=== PATIENT | female | born 1960 | race Caucasian/White ===

== ENCOUNTER 2019-09-29 23:51 | Emergency (ER) | payer BC ==
[2019-09-30] MEDS ORDERED: LIDOCAINE VISCOUS 2% SOLN 15 ML UDC ONE (00:35)
[2019-09-30] MEDS ORDERED: ONDANSETRON 4 MG/2 ML VIAL ONE (00:35)
[2019-09-30] MEDS ORDERED: NA CHLORIDE 0.9% 1,000 ML ONE (00:35)
[2019-09-30] MEDS ORDERED: FENTANYL CITR 100 MCG/2 ML ONE ×2 (00:35→01:42)
[2019-09-30] MEDS ORDERED: FLEET ENEMA ADULT PR ONE (00:55)
[2019-09-30 01:01] LABS: Absolute Lymphocytes (CBC) 1.5 K/uL (0.7-4.9); Basophils % 0.7 % (0-1.3); Hematocrit 38.4 % (36.0-45.0); Lymphocytes % 10.6 % (15.3-44.8); MPV 8.4 fL (7.6-11.3); RBC Red Blood Cell Count 4.34 M/uL (3.86-4.86)
[2019-09-30 01:25] LABS: Bilirubin Direct 0.2 mg/dL (0-0.2); Bilirubin Total 0.7 mg/dL (0.2-1.0); Potassium 3.6 mmol/L (3.5-5.1); Protein, Total 7.9 g/dL (6.4-8.2)
[2019-09-30] MEDS ORDERED: MAGNESIUM CITRATE 300 ML BOT ONE (01:43)
--- NOTE | 2019-09-30 01:48 | ER ---
Nurse's Notes [facility] Name: Jojo Alfaro Age: 59 yrs Sex: Female : 1960 Arrival Date: 09/29/2019 Time: 23:54 Bed 28 Private MD: Diagnosis: Fecal impaction Presentation: 09/30 00:07 Presenting complaint: Patient states: she has not been able to have a bowel movement aa1 today and was able to pass a small amount of stool but it became stuck and she is now having significant rectal pain and is unable to sit down. Transition of care: patient was not received from another setting of care. Onset of symptoms was September 29, 2019. Risk Assessment: Do you want to hurt yourself or someone else? Patient reports no desire to harm self or others. Initial Sepsis Screen: Does the patient meet any 2 criteria? RR > 20 per min. HR > 90 bpm. Does the patient have a suspected source of infection? No. Patient's initial sepsis screen is negative. Care prior to arrival: None. 00:07 Method Of Arrival: Ambulatory aa1 00:07 Acuity: ISAC 3 aa1 Triage Assessment: 00:06 General: Appears uncomfortable, well groomed, Behavior is anxious, restless. Pain: ch Complains of pain in anus Pain currently is 8 out of 10 on a pain scale. Pain began gradually. EENT: No deficits noted. No signs and/or symptoms were reported regarding the EENT system. Neuro: No deficits noted. Cardiovascular: No deficits noted. Respiratory: Airway is patent Respiratory effort is even, unlabored, Breath sounds are clear bilaterally. GI: Reports constipation, rectal pain, states she can feel stool in there but it is very hard and wont come out. Derm: Skin is intact, is healthy with good turgor, Skin is clammy, Skin is normal, pale, Skin temperature is warm. Musculoskeletal: No signs and/or symptoms reported regarding the musculoskeletal system. Historical: - Allergies: 00:10 Levaquin; aa1 - Home Meds: 00:10 phentermine 37.5 mg oral cap 1 cap once daily [Active]; amlodipine 2.5 mg tab 1 tab aa1 once daily [Active]; metoprolol succinate 50 mg oral Tb24 1 tab once daily [Active]; losartan-hydrochlorothiazide 100-25 mg oral tab 1 tab once daily [Active]; - PMHx: 00:10 Hypertension; aa1 - PSHx: 00:10 Hysterectomy; Tubal ligation; Appendectomy; aa1 - Immunization history:: Adult Immunizations up to date, Flu vaccine is not up to date. . - Coronavirus screen:: The patient has NOT traveled to [place] in the past 14 days. Proceed with normal triage process as indicated. - Social history:: Smoking status: Patient denies any tobacco usage or history of. Smoking status: Patient denies any tobacco usage or history of. - Ebola Screening: : No symptoms or risks identified at this time. Screenin:09 Abuse screen: Denies threats or abuse. Denies injuries from another. Nutritional ch screening: No deficits noted. Tuberculosis screening: No symptoms or risk factors identified. Fall Risk None identified. Assessment: 00:10 Reassessment: Patient appears in no apparent distress at this time. No changes from previously documented assessment. 01:18 Reassessment: Patient appears in no apparent distress at this time. fleet enema ch administered. pt yells for me to stop 1/[address] thru the bottle. I stop. pt then assisted to standing. pt states she hurts too much to sit on the commode. I tell Elroy sheets. pt still cannot sit on bsc, states she doesn't want to lay or sit. soap suds enema ordered. 01:35 Reassessment: Patient appears in no apparent distress at this time. pt is not ch tolerating soap suds enema. I attempted to give soap suds enema to pt. pt states she needs more pain medication, that she cannot handle this. Elroy sheets comes in to re assess pt. 01:49 Reassessment: pt left in room. pt sits on commode and poops. pt states she feels ch instant relief. pt to be discharged. 01:59 GI: Bowel sounds present X 4 quads. Abd is soft and non tender X 4 quads. Vital Signs: 00:06 BP 94 / 52; Pulse 110; Resp 20; Temp 98.5(O); Pulse Ox 99% on R/A; Pain 8/10; ch 00:10 Weight 86.18 kg; Height 5 ft. 7 in. (170.18 cm); aa1 01:17 BP 120 / 78; Pulse 97; Resp 14; Temp 98.8; Pulse Ox 99% on R/A; Pain 8/10; ch 01:49 BP 110 / 62; Pulse 74; Resp 16; Temp 98.4; Pulse Ox 99% on R/A; Pain 1/10; ch 00:10 Body Mass Index 29.76 (86.18 kg, 170.18 cm) aa1 ED Course: 09/29 23:54 Patient arrived in ED. ds1 23:58 Elroy Sheets PA is PHCP. cp 23:58 Jose Owens MD is Attending Physician. cp 09/30 00:06 Amelia Tijerina, SARA is Primary Nurse. ch 00:06 Arm band placed on left wrist. Patient placed in an exam room, on a stretcher, I ch attempt to put pt on pulse ox monitoring and to have pt sit or lay in bed. pt is very restless and cannot sit still. pt declines pulse ox. she states her anus just hurts too much to hold still. awaiting provider for rectal exam. 00:09 Triage completed. aa1 00:09 Patient has correct armband on for positive identification. Bed in low position. Call ch light in reach. Side rails up X 1. 00:45 Inserted saline lock: 18 gauge in left antecubital area, using aseptic technique. Blood ch collected. 00:45 Initial lab(s) drawn, by me, sent to lab. ch 01:17 Pulse ox on. NIBP on. Door closed. Noise minimized. Warm blanket given. ch 01:49 No apparent distress. Resting quietly. ch 01:49 No provider procedures requiring assistance completed. IV discontinued, intact, ch bleeding controlled, No redness/swelling at site. Pressure dressing applied. Administered Medications: 00:45 Drug: fentaNYL (PF) 25 mcg Route: IVP; Site: left antecubital; ch 01:49 Follow up: Response: No adverse reaction ch 00:45 Drug: NS 0.9% 1000 ml Route: IV; Rate: 1 bolus; Site: left antecubital; ch 01:49 Follow up: IV Status: Completed infusion; IV Intake: 1000ml ch 01:00 Drug: Fleet Enema 133 ml Route: ND; ch 01:10 Follow up: Response: Adverse reaction, Physician notified; only 1/2 bottle ch administered. pt tolerated poorly, requests I stop. enema stopped at 1/2 bottle. 01:30 Drug: enema 1 application Route: ND; ch 01:35 Follow up: Response: Adverse reaction, Physician notified; Adverse reaction, Physician ch notified, pt states she cannot handle the pressure, we need to stop. I stop soap suds enema after 5 min, less than 100mL in. pt left in room alone with bsc, call light. 01:48 Not Given (Patient Refused): fentaNYL (PF) 25 mcg IVP once; RASS on ADMIN: Combtv4, ch Very Agttd3, Agttd2, Rstlss1, AlertClm0, Drwsy-1, Lt Sdtn-2, Mod Sdtn-3, Dp Sdtn-4, UnArsble-5 01:49 Not Given (Patient Refused): Magnesium Citrate Liquid 300 ml PO once ch Intake: 01:49 IV: 1000ml; Total: 1000ml. ch Outcome: 01:48 Discharge ordered by MD. cp 01:49 Discharged to home ambulatory, with family. 01:49 Condition: stable 01:49 Discharge instructions given to patient, Instructed on discharge instructions, follow up and referral plans. Demonstrated understanding of instructions, follow-up care. 02:00 Patient left the ED. Signatures: Amelia Tijerina RN Franca Bray ch, RN RN aa1 Jordana Del Toro ds1 Elroy Sheets PA PA cp
--- NOTE | 2019-09-30 01:49 | EDPHYS ---
Physician Documentation [facility] Name: Jojo Alfaro Age: 59 yrs Sex: Female : 1960 Arrival Date: 09/29/2019 Time: 23:54 Bed 28 Private MD: ED Physician Jose Owens HPI: 09/30 00:30 This 59 yrs old Female presents to ER via Ambulatory with complaints of cp Constipation. 00:30 The patient presents to the emergency department with pain in the rectal area, that is cp severe. Onset: The symptoms/episode began/occurred today. Associate signs and symptoms: Pertinent positives: constipation, Pertinent negatives: abdominal pain, diarrhea, fever, lower GI bleeding. Historical: - Allergies: 00:10 Levaquin; aa1 - Home Meds: 00:10 phentermine 37.5 mg oral cap 1 cap once daily [Active]; amlodipine 2.5 mg tab 1 tab aa1 once daily [Active]; metoprolol succinate 50 mg oral Tb24 1 tab once daily [Active]; losartan-hydrochlorothiazide 100-25 mg oral tab 1 tab once daily [Active]; - PMHx: 00:10 Hypertension; aa1 - PSHx: 00:10 Hysterectomy; Tubal ligation; Appendectomy; aa1 - Immunization history:: Adult Immunizations up to date, Flu vaccine is not up to date. . - Coronavirus screen:: The patient has NOT traveled to [place] in the past 14 days. Proceed with normal triage process as indicated. - Social history:: Smoking status: Patient denies any tobacco usage or history of. Smoking status: Patient denies any tobacco usage or history of. - Ebola Screening: : No symptoms or risks identified at this time. ROS: 00:35 Constitutional: Negative for body aches, chills, fever, poor PO intake. cp 00:35 Eyes: Negative for injury, pain, redness, and discharge. cp 00:35 Cardiovascular: Negative for chest pain. cp 00:35 Respiratory: Negative for cough, shortness of breath, wheezing. cp 00:35 Abdomen/GI: Positive for constipation, rectal pain, Negative for abdominal pain, vomiting, diarrhea, black/tarry stool, rectal bleeding. 00:35 Neuro: Negative for altered mental status, weakness. 00:35 All other systems are negative. Exam: 00:45 Constitutional: The patient appears in no acute distress, alert, awake, non-toxic, well cp developed, well nourished, uncomfortable. 00:45 Head/Face: Normocephalic, atraumatic. cp 00:45 Eyes: Periorbital structures: appear normal, Conjunctiva: normal, no exudate, no injection, Sclera: no appreciated abnormality, Lids and lashes: appear normal, bilaterally. 00:45 ENT: External ear(s): are unremarkable, Nose: is normal, Mouth: Lips: moist, Oral mucosa: moist, Posterior pharynx: is normal, airway is patent. 00:45 Chest/axilla: Inspection: normal. 00:45 Cardiovascular: Rate: tachycardic, Rhythm: regular. 00:45 Respiratory: the patient does not display signs of respiratory distress, Respirations: normal, no use of accessory muscles, labored breathing, is not present. 00:45 Abdomen/GI: Inspection: abdomen appears normal, Bowel sounds: active, all quadrants, Palpation: abdomen is soft and non-tender, in all quadrants, rebound tenderness, is not appreciated, voluntary guarding, is not appreciated, involuntary guarding, is not appreciated, Rectal exam: fecal impaction, that is severe. Vital Signs: 00:06 BP 94 / 52; Pulse 110; Resp 20; Temp 98.5(O); Pulse Ox 99% on R/A; Pain 8/10; ch 00:10 Weight 86.18 kg; Height 5 ft. 7 in. (170.18 cm); aa1 01:17 BP 120 / 78; Pulse 97; Resp 14; Temp 98.8; Pulse Ox 99% on R/A; Pain 8/10; ch 01:49 BP 110 / 62; Pulse 74; Resp 16; Temp 98.4; Pulse Ox 99% on R/A; Pain 1/10; ch 00:10 Body Mass Index 29.76 (86.18 kg, 170.18 cm) aa1 MDM: 00:09 Patient medically screened. cp 01:00 Differential diagnosis: hemorrhoids, abscess, fecal impaction, constipation, bowel cp obstruction. 01:46 Data reviewed: vital signs, nurses notes, lab test result(s). Response to treatment: cp the patient's symptoms have markedly improved after treatment, Patient observed to have bowel movement while in ED. 09/30 00:30 Order name: Basic Metabolic Panel cp 09/30 00:30 Order name: CBC with Diff cp 09/30 00:30 Order name: Creatinine for Radiology cp 09/30 00:30 Order name: Hepatic Function cp 09/30 00:30 Order name: Lipase cp 09/30 01:04 Order name: CBC with Automated Diff; Complete Time: 01:34 EDMS 09/30 01:34 Interpretation: Normal except: WBC 13.8; EMMANUEL% 83.0; LYM% 10.6; NEUT A 11.5. cp 09/30 01:24 Order name: Creatinine (Radiology Only); Complete Time: 01:34 EDMS 09/30 01:26 Order name: Basic Metabolic Panel; Complete Time: :34 EDMS 09/30 01:42 Interpretation: Normal except: GLUC 179; GFR 43. cp 09/30 01:26 Order name: Liver (Hepatic) Function; Complete Time: 01:34 EDMS 09/30 01:42 Interpretation: Normal except: GLOB 3.9; A/G 1.0. cp 09/30 01:26 Order name: Lipase; Complete Time: :34 EDMS 09/30 00:30 Order name: IV Saline Lock; Complete Time: 01:55 cp 09/30 00:30 Order name: Labs collected and sent; Complete Time: 01:55 cp Administered Medications: 00:45 Drug: fentaNYL (PF) 25 mcg Route: IVP; Site: left antecubital; ch 01:49 Follow up: Response: No adverse reaction ch 00:45 Drug: NS 0.9% 1000 ml Route: IV; Rate: 1 bolus; Site: left antecubital; ch 01:49 Follow up: IV Status: Completed infusion; IV Intake: 1000ml ch 01:00 Drug: Fleet Enema 133 ml Route: CA; ch 01:10 Follow up: Response: Adverse reaction, Physician notified; only 1/2 bottle ch administered. pt tolerated poorly, requests I stop. enema stopped at 1/2 bottle. 01:30 Drug: enema 1 application Route: CA; ch 01:35 Follow up: Response: Adverse reaction, Physician notified; Adverse reaction, Physician ch notified, pt states she cannot handle the pressure, we need to stop. I stop soap suds enema after 5 min, less than 100mL in. pt left in room alone with bsc, call light. 01:48 Not Given (Patient Refused): fentaNYL (PF) 25 mcg IVP once; RASS on ADMIN: Combtv4, ch Very Agttd3, Agttd2, Rstlss1, AlertClm0, Drwsy-1, Lt Sdtn-2, Mod Sdtn-3, Dp Sdtn-4, UnArsble-5 01:49 Not Given (Patient Refused): Magnesium Citrate Liquid 300 ml PO once ch Disposition: 03:13 Co-signature as Attending Physician, Jose Owens MD. rn Disposition: 09/30/19 01:48 Discharged to Home. Impression: Fecal impaction. - Condition is Stable. - Discharge Instructions: Constipation, Adult, Fecal Impaction. - Prescriptions for Miralax 17 gram/dose Oral - take 1 packet by ORAL route once daily for 10 days dilute powder in 8 ounces of water or juice; 10 packet. - Medication Reconciliation Form, Thank You Letter, Antibiotic Education, Prescription Opioid Use form. - Follow up: Emergency Department; When: As needed; Reason: Worsening of condition. - Problem is new. - Symptoms have improved. Signatures: Dispatcher [employer] EDMS Amelia Tijerina RN RN Franca Faria RN RN aa1 Jose Owens MD MD rn Elroy Sheets PA PA cp Corrections: (The following items were deleted from the chart) 02:00 01:48 09/30/2019 01:48 Discharged to Home. Impression: Fecal impaction. Condition is ch Stable. Forms are Medication Reconciliation Form, Thank You Letter, Antibiotic Education, Prescription Opioid Use. Follow up: Emergency Department; When: As needed; Reason: Worsening of condition. Problem is new. Symptoms have improved. cp
[2019-10-01 05:31] VITALS: O2SAT 99
[2019-10-01 05:34] VITALS: BP 110/62; TEMP 98.4
== END 2019-09-30 02:00 | disposition home or self-care (01) ==
LOC: ER 23:51
DX: K56.41 Fecal impaction (principal); Z88.6 Allergy status to analgesic agent; I10 Essential (primary) hypertension
CPT/HCPCS: 96361; 85025; 80048; 36415; 80076; 83690; 96374; 99284; J3010 ×2; J7030; J2405